=== PATIENT | male | born 1995 | race Caucasian/White ===

== ENCOUNTER 2023-05-10 13:35 | Outpatient (CLI) | payer OTHER ==
[~2023-05-10 13:35] MED LIST: GADOTERATE MEGLUMINE 10 MMOL/20 ML VIAL ONE
[2023-05-10] MEDS: GADOTERATE MEGLUMINE 10 MMOL/20 ML VIAL IVP ONE (14:36)
--- NOTE | 2023-05-10 16:11 | MRI Report ---
PROCEDURE: Lumbar Spine W/WO INDICATIONS: LOWER ABD PAIN, LOW BACK PAIN, SCROTAL PAIN CONTRAST: CLARISCAN 19ML TECHNIQUE: Noncontrast sagittal T1 spin echo and T2 fast spin echo, sagittal STIR, axial T1 and T2 fast spin ech o through the lumbar spine. In cases with scoliosis, additional coronal T2 fast spin echo may be per formed. After the administration of contrast, sagittal and axial T1 spin echo with fat saturation th rough the lumbar spine. COMPARISON: None. FINDINGS: Image quality: Excellent. Alignment and curvature: Straightening of the normal lumbar lordosis. Marrow: Congenitally short pedicles. Marrow is of normal overall signal. No acute vertebral body co mpression fractures. No suspicious marrow enhancement. Spinal cord: Conus medullaris terminates at the L1 level. Visualized spinal cord demonstrates haydee l signal, without suspicious enhancement. Paraspinous soft tissues: No paravertebral masses or abnormal enhancement. T12-L1: Normal in appearance. L1-L2: Normal in appearance. L2-L3: Normal in appearance. L3-L4: Normal in appearance. L4-L5: Normal in appearance. L5-S1: Normal in appearance. IMPRESSION: 1.No significant degenerative changes. No central canal or neuroforaminal stenosis. 2.No abnormal enhancement. Reviewed by: Augustine Hedrick MD on 05/10/2023 4:10 PM PDT Approved by: Augustine Hedrick MD on 05/10/2023 4:10 PM PDT Station ID: [id number]
== END 2023-05-10 13:36 | disposition home or self-care (01) ==
LOC: DI 13:35
PROVIDERS: ATTEND Physician Assistant Medical
DX: R10.30 Lower abdominal pain, unspecified (principal); L29.1 Pruritus scroti; M54.50 Low back pain, unspecified; G89.29 Other chronic pain
CPT/HCPCS: 72158; A9575